=== PATIENT | female | born 1985 | race Caucasian/White ===

== ENCOUNTER 2020-07-11 15:51 | Inpatient (IN) | payer OTHER ==
[2020-07-11 16:30] LABS: APPEARANCE,URINE CLEAR; BILIRUBIN,URINE NEGATIVE (NEGATIVE); COLOR,URINE YELLOW; GLUCOSE, URINE NEGATIVE (NEGATIVE); KETONES,URINE NEGATIVE (NEGATIVE); LEUKOCYTE ESTERASE,URINE NEGATIVE (NEGATIVE); NITRITE,URINE NEGATIVE (NEGATIVE); PROTEIN,URINE NEGATIVE (NEGATIVE); UROBILINOGEN,URINE NEGATIVE mg/dL (<2.0)
[2020-07-11 16:50] LABS: URINE AMPHETAMINES SCREEN NEGATIVE; URINE BARBITURATES SCREEN NEGATIVE; URINE BENZODIAZEPINES SCREEN NEGATIVE; URINE COCAINE SCREEN NEGATIVE; URINE MARIJUANA (THC) SCREEN NEGATIVE; URINE METHADONE SCREEN NEGATIVE; URINE PHENCYCLIDINE SCREEN NEGATIVE
[2020-07-11] MEDS ORDERED: MISOPROSTOL 0.2 MG TABLET ONE (17:08)
[2020-07-11] MEDS ORDERED: LIDOCAINE 1% INJ-PF (10 MG/ML) 30 ML SDV ONE (17:08)
[2020-07-11] MEDS ORDERED: OXYTOCIN 10 UNIT/ML VIAL ONE (17:08)
[2020-07-11] MEDS ORDERED: OXYTOCIN/0.9 % SODIUM CHLORIDE 30 UNIT/500 ML RTUINJ ONE (17:09)
--- NOTE | 2020-07-11 17:22 | Admission Physical ---
Datetime Report Generated by CPN: 07/11/2020 17:22 CURRENT ADMISSION Chief Complaint: Uterine Contractions; Suspected Ruptured Membranes Indication for Induction: Not Applicable Admit Impression : Term, Intrauterine ; Active Labor; Ruptured Membranes Admit Plan: Admit to Unit; Initiate Labor Protocol ALLERGIES Medication Allergies: Yes Medication Allergies: amoxicillin (07/11/2020); penicillin G (07/11/2020) Latex: No Latex Allergies OBSTETRICAL HISTORY EDC: 07/14/2020 00:00 : 2 Para: 1 Term: 1 : 0 SAB: 0 IAB: 0 Ectopic: 0 Livin Cesareans: 0 VBACs: 0 Multiple Births: 0 Gestational Diabetes: No Rh Sensitization: No Incompetent Cervix: No CHASE: No Infertility: No ART Treatment: No Uterine Anomaly: No IUGR: No Hx Previous C/S: No Macrosomia: No Hx Loss/Stillborn: No PIH: No Hx : No Placenta Previa/Abruption: No Depression/PP Depression: No PTL/PROM: No Post Hemorrhage: No Current Procedures: Ultrasound Obstetrical History Comments: G1 2014 Epidural Girl G2- Current SEE RECORDS Alcohol: No Marijuana : No Cocaine: No Other Illicit Drugs: No Cigarettes: Former Smoker. [id number] MEDICAL HISTORY Diabetes: No Blood Transfusion: No Pulmonary Disease (Asthma, TB): No Breast Disease: No Hypertension: No Maitre D Surgery: No Heart Disease: No Hosp/Surgery: Yes Autoimmune Disorder: No Anesthetic Complications: No Kidney Disease: No Abnormal Pap Smear: No Neuro/Epilepsy: No Psychiatric Disorders: No Other Medical Diseases: No Hepatitis/Liver Disease: No Significant Family History: No Varicosities/Phlebitis: No Trauma/Violence : No Thyroid Dysfunction: Yes Medical History Comments: Hypothyroidism during , Hospitalized during child INFECTIOUS HISTORY Gonorrhea: No Genital Herpes: No Chlamydia: No Tuberculosis: No Syphilis: No Hepatitis: No HIV/AIDS Exposure: No Rash or Viral Illness: No HPV: No PHYSICAL EXAM General: Normal Heart: Normal Lungs: Normal Extremities: Normal DTRs: Normal Pelvic Type: Adequate Physical Exam Comments: pelvis proven to 7lbs 7 oz Vital Signs: Reviewed; Within Normal Limits VAGINAL EXAM Dilatation: 5 Effacement: 60 Station: -1 Contraction Comments: 2-4 MEMBRANES Membranes: Ruptured Amniotic Fluid Color: Meconium, Light FETUS A EGA: 39.4 Monitoring: External US FHR Category: Category I FHR Comments: after ruptured of forebag Cat II strip (late decel x1) but back to Cat I at this time Presentation: Vertex Admit Comment: 35yo @ 39w4d who was seen in the office today and was having contractions at that time and was found to be 3cm dilated. Pt. reports she had SROM @ 1430 with meconium stained fluid and contractions are getting stronger. Pt is O pos, RI, GBS negative. complicated by hypothyroidism and stopped smoking with positive test. Pt with forebag that was ruptured on admission and light meconium noted; plan is expectant management at this time. Dr. Garsia is the OB regional account manager today and aware of admission. PLANS FOR LABOR AND DELIVERY Labor and Delivery: None Pain Management: Natural Feeding Preference: Breast Benefit of Breast Feed Discussed: Yes Circumcision: Yes INFORMED CONSENT Assignment: Ger Garsia MD Signature: with User ID: Hugo : with User ID: [email or web address]
[2020-07-11 17:36] LABS: ABSOLUTE BASOPHILS # (AUTO) 0.1 10^3/uL (0.0-0.2); ABSOLUTE EOSINOPHILS # (AUTO) 0.3 10^3/uL (0.0-0.6); ABSOLUTE LYMPHOCYTES (AUTO) 1.3 10^3/uL (0.5-4.7); ABSOLUTE NEUT (AUTO) 6.8 10^3/uL (1.7-8.2); BASOPHILS % (AUTO) 0.8 % (0-2); EOSINOPHILS % (AUTO) 2.8 % (0-6); HEMATOCRIT 32.8 % (36.0-47.0); HEMOGLOBIN 11.4 g/dL (12.0-15.5); LYMPHOCYTES % (AUTO) 13.7 % (13-45); MEAN CORPUSCULAR HEMOGLOBIN 33.3 pg (27.0-33.4); MEAN CORPUSCULAR HGB CONC 34.9 g/dL (32.0-36.0); MEAN CORPUSCULAR VOLUME 95 fl (80-97); MONOCYTES % (AUTO) 10.5 % (3-13); PLATELET COUNT 293 10^3/uL (150-450); RED BLOOD COUNT 3.44 10^6/uL (3.72-5.28); RED CELL DISTRIBUTION WIDTH 13.4 % (11.5-14.0); SEGMENTED NEUTROPHILS % (AUTO) 72.2 % (42-78); TOTAL CELLS COUNTED % (AUTO) 100 %; WHITE BLOOD COUNT 9.5 10^3/uL (4.0-10.5)
[2020-07-11] MEDS ORDERED: IBUPROFEN 800 MG TABLET ONE (20:42)
[2020-07-11] MEDS ORDERED: MEASLES,MUMPS&RUBELLA VACC/PF 0.5 ML VIAL SUBCUT PRN (20:42)
[2020-07-11] MEDS ORDERED: ZOLPIDEM TARTRATE 5 MG TABLET PO PRN (20:42)
[2020-07-11] MEDS ORDERED: BENZOCAINE/MENTHOL AEROSOL SPRAY 56 ML TOP PRN (20:42)
[2020-07-11] MEDS ORDERED: OXYTOCIN/0.9 % SODIUM CHLORIDE 30 UNIT/500 ML RTUINJ IV PRN (20:42)
[2020-07-11] MEDS ORDERED: PROMETHAZINE HCL 25 MG SUPP.RECT PR PRN (20:42)
[2020-07-11] MEDS ORDERED: PSEUDOEPHEDRINE HCL 30 MG TABLET PO PRN (20:42)
[2020-07-11] MEDS ORDERED: DIBUCAINE 1% OINTMENT 28 GM TP PRN (20:42)
[2020-07-11] MEDS ORDERED: NA PHOS,M-B/NA PHOS,DI-BA (ADULT) 133 ML ENEMA PR PRN (20:42)
[2020-07-11] MEDS ORDERED: DIPHENHYDRAMINE HCL 25 MG CAPSULE PO PRN (20:42)
[2020-07-11] MEDS ORDERED: ACETAMINOPHEN 650 MG SUPP.RECT PR PRN (20:42)
[2020-07-11] MEDS ORDERED: GLYCERIN/WITCH HAZEL LEAF 1 EACH MED..WIPE TP PRN (20:42)
[2020-07-11] MEDS ORDERED: MAGNESIUM HYDROXIDE SUSP 30 ML UDCUP PO PRN (20:42)
[2020-07-11] MEDS ORDERED: ACETAMINOPHEN WITH CODEINE #3 TABLET PO PRN (20:42)
[2020-07-11] MEDS ORDERED: PROMETHAZINE HCL INJ 25 MG/1 ML VIAL IV PRN (20:42)
[2020-07-11] MEDS ORDERED: PROMETHAZINE HCL 25 MG TABLET PO PRN (20:42)
[2020-07-11] MEDS ORDERED: DIPH/PERTUSS(ACELL)/TETANUS VAC/PF 0.5 ML SYR (>=10YO) IM PRN (20:42)
--- NOTE | 2020-07-11 21:44 | Warning Signs in Babies ---
VOD Warning Signs Datetime Report Generated by N: 07/11/2020 21:44 VOD#[id number] -Warning Signs in Babies: Viewed with Parent(s)/Family (07/11/2020 16:25:Belia Voss RN)
--- NOTE | 2020-07-11 22:10 | Delivery Summary ---
Del Sum A-C Datetime Report Generated by CPN: 07/11/2020 22:09 DELIVERY PERSONNEL DELIVERY PERSONNEL: [id number] Delivery Doctor:: Ger Garsia, MD Labor and Delivery Nurse:: Belia Voss rn mds Nurse:: Amira Bellavance, RNC MATERNAL INFORMATION Delivery Anesthesia: None Medications After Delivery: Pitocin Bolus-Please Comment Delivery QBL: 50 Maternal Complications: None LABOR SUMMARY EDC: 07/14/2020 00:00 No. Babies in Womb: 1 Attempted: No Labor Anesthesia: None LABOR INFORMATION Reason for Induction: Not Applicable Onset of Labor: 07/11/2020 16:50 Complete Dilatation: 07/11/2020 20:22 Oxytocin: N/A Group B Beta Strep: Negative Antibiotics # of Doses: 0 Name of Antibiotic Given: n/a Steroids Given: None Reason Steroids Not Administered: Not Applicable MEMBRANES Membranes Rupture Method: Spontaneous Rupture of Membranes: 07/11/2020 14:30 Length of Rupture (hr): 5.98 Amniotic Fluid Color: Light Meconium Amniotic Fluid Amount: Small Amniotic Fluid Odor: Normal STAGES OF LABOR Stage 1 hr: 3 Stage 1 min: 32 Stage 2 hr: 0 Stage 2 min: 7 Stage 3 hr: 0 Stage 3 min: 8 Total Time in Labor hr: 3 Total Time in Labor min: 47 VAGINAL DELIVERY Episiotomy: None Laceration #1: None Sponge Count Correct: N/A Sharps Count Correct: N/A CSECTION DELIVERY Primary Indication: N/A Secondary Indication: N/A CSection Incidence: N/A Labor: N/A Elective: N/A CSection Incision: N/A BABY A INFORMATION Infant Delivery Date/Time: 07/11/2020 20:29 Method of Delivery: Vaginal Nurse Controlled Delivery: Yes Born in Route : No : N/A Forceps: N/A Vacuum Extraction: N/A Shoulder Dystocia : No PRESENTATION/POSITION BABY A Presentation: Cephalic Cephalic Presentation: Vertex Vertex Position: Right Occipital Anterior Breech Presentation: N/A PLACENTA INFORMATION BABY A Placenta Delivery Time : 07/11/2020 20:37 Placenta Method of Delivery: Spontaneous Placenta Status: Delivered SCORES BABY A Heart Rate 1 min: >100 bpm Resp Effort 1 min: Good Cry Reflex Irritability 1 min: Cough or Sneeze or Pulls Away Muscle Tone 1 min: Active Motion Color 1 min: Body [place], Extremities Blue Resuscitation Effort 1 min: Tactile Stimulation SCORE 1 MIN: 9 Heart Rate 5 min: >100 bpm Resp Effort 5 min: Good Cry Reflex Irritability 5 min: Cough or Sneeze or Pulls Away Muscle Tone 5 min: Active Motion Color 5 min: Completely [place] SCORE 5 MIN: 10 INFORMATION BABY A Gestational Age at Delivery: 39.4 Gestational Status: Full Term- 39- 40.6 Weeks Outcome : Liveborn Condition : Stable Sex: Male IDENTIFICATION BABY A Verification Date/Time: 07/11/2020 20:52 ID Band Number: [id number] Mother's Name Verified: Yes RN Verifying Infant: Norma Voss, RN Additional Verifying Personnel: Frederick Augustin RN WEIGHT/LENGTH BABY A Infant Birthweight (gm): 3370 Weight (lb): 7 Weight (oz): 7 Infant Length (in): 20.75 Infant Length (cm): 52.71 CORD INFORMATION BABY A No. Cord Vessels: 3 Nuchal Cord : N/A Cord Blood Taken: Yes-For Eval (Mom's Blood Type - or O+) Suction: None ASSESSMENT BABY A Complications: None Physical Findings at Delivery: Within Normal Limits Skin to Skin: Yes Skin to Skin Time (min): 60 Transferred To: Remains with Mother BABY B INFORMATION : N/A SIGNATURES Signature: with User ID: [email or web address]
--- NOTE | 2020-07-11 22:10 | Birth Certificate Data ---
Cert Data Datetime Report Generated by CPN: 07/11/2020 22:09 CERTIFICATE DATA Delivery Provider: Ger Garsia MD (07/11/2020 16:25:Isabel Augustin RN) 47a. Care: Yes (07/11/2020 16:25:Amy Steel RN) 47b. Date of First Visit: 01/04/2020 00:00 (07/11/2020 16:25:Amy Steel RN) 47c. Date of Last Visit: 07/11/2020 00:00 (07/11/2020 16:25:Amy Steel RN) 47d. Number of Visits: 10 (07/11/2020 16:25:Amy Steel RN) 48a. Number of Prev Live Births: 1 (07/11/2020 16:25:Amy Steel RN) 48b. Now Livin (07/11/2020 16:25:Amy Steel RN) 48c. Live Births Now : 0 (07/11/2020 16:25:QS system process) 48d. Date of Last Live : 11/03/2014 00:00 (07/11/2020 16:25:Amy Steel RN) 48e. Losses: 0 (07/11/2020 16:25:Amy Steel RN) RISK FACTORS IN THIS 49a. Diabetes: No (07/11/2020 16:25:Amy Steel RN) 49b. Hypertension: No (07/11/2020 16:25:Amy Steel RN) 49c. Previous Births: 0 (07/11/2020 16:25:Amy Steel RN) 49d. Stillborns: No (07/11/2020 16:25:Amy Steel RN) 49d. IUGR: No (07/11/2020 16:25:Amy Steel RN) 49e. Infertility Treatment: No (07/11/2020 16:25:Amy Steel RN) 49f. Previous Cesareans: 0 (07/11/2020 16:25:Amy Steel RN) Mother's Height 50b. Height Inches: 68 (07/11/2020 19:05:QS system process) Mother's Weight 51a. Pre- Weight (lbs): 162 (07/11/2020 16:25:Amy Steel RN) 51b. Weight at Delivery (lbs): 185 (07/11/2020 19:05:MD [employer] system process) 52. Dt Last Normal Menses Began: 09/23/2019 00:00 (07/11/2020 16:25:Amy Steel RN) Infections Present/Treated 53a. Gonorrhea: No (07/11/2020 16:25:Amy Steel RN) Results this Hospital Visit : Negative (07/11/2020 16:25:Amy Steel RN) 53b. Syphilis: No (07/11/2020 16:25:Amy Steel RN) 53c. Chlamydia: No (07/11/2020 16:25:Amy Steel RN) Results this Hospital Visit: Positive (07/11/2020 16:25:Amy Steel RN) 53d. Hepatitis B: No (07/11/2020 16:25:Amy Steel RN) Results this Hospital Visit: Negative (07/11/2020 16:25:Amy Steel RN) 53h. Mother Tested for HBsAG: Yes (07/11/2020 16:25:Amy Steel RN) 53i. Date Tested: 01/04/2020 00:00 (07/11/2020 16:25:Amy Steel RN) 53j. Test Result: Negative (07/11/2020 16:25:Amy Steel RN) Obstetric Procedures 54a, b, c. Obstetric Procedures: Ultrasound (07/11/2020 16:25:Amy Steel RN) Cigarette Smoking Cigarette Smoking: Former Smoker. [id number] (07/11/2020 16:25:Amy Steel RN) 55a. 3 Months Before Preg - Ci (07/11/2020 16:25:Amy Steel RN) 55a. Packs: 0 (07/11/2020 16:25:Amy Steel RN) 55b. 1st Trimester of Preg- Ci (07/11/2020 16:25:Amy Steel RN) 55b. Packs: 0 (07/11/2020 16:25:Amy Steel RN) 55c. 2nd Trimester of Preg- Ci (07/11/2020 16:25:Amy Steel RN) 55c. Packs: 0 (07/11/2020 16:25:Amy Steel RN) 55d. 3rd Trimester of Preg- Ci (07/11/2020 16:25:Amy Steel RN) 55d. Packs: 0 (07/11/2020 16:25:Amy Steel RN) Onset of Labor 56a. PROM >12 Hrs: 5.98 (07/11/2020 17:11:QS system process) 56b. Precipitous Labor <3 Hrs: 3 (07/11/2020 16:25:QS system process) 56c. Prolonged Labor > 20 Hrs: 3 (07/11/2020 16:25:QS system process) 57a. Induction of Labor: N/A (07/11/2020 16:25:Isabel Augustin RN) 57c. Non-Vertex Presentation A: Vertex (07/11/2020 16:25:Isabel Augustin RN) 57d. Steroids - Lung Mat: None (07/11/2020 16:25:Isabel Augustin RN) 57d. Steroids - Lung Mat: Not Applicable (07/11/2020 16:25:Isabel Augustin RN) 57f. Mat [place] or Temp >100.4: 98.5 (07/11/2020 16:25:Isabel Augustin RN) 57g. Moderate/Heavy Meconium: Light Meconium (07/11/2020 17:11:Amy Steel RN) 57h. Intolerance of Labor: N/A (07/11/2020 16:25:Isabel Augustin RN) : N/A (07/11/2020 16:25:Belia Voss RN) 57i. Epidural/Spinal Anesthesia: None (07/11/2020 16:25:Isabel Augustin RN) Method of Delivery 58a. Forceps - Unsuccessful A: N/A (07/11/2020 16:25:Isabel Augustin RN) 58b. Vacuum - Unsuccessful A: N/A (07/11/2020 16::Isabel Augustin RN) 58c. Presentation at 58c. Presentation at - A : Vertex (07/11/2020 16:25:Isabel Augustin RN) 58c. Presentation at - A : N/A (07/11/2020 16:25:Isabel Augustin RN) 58c. Presentation at - A : Cephalic (07/11/2020 18:38:Amy Steel RN) Final Route and Method of Del 58d. Baby A Route/Delivery: Vaginal (07/11/2020 16:25:Isabel Augustin RN) 58e. Trial of Labor Attempted: No (07/11/2020 16:25:Isabel Augustin RN) 58e. Trial of Labor Attempted A: N/A (07/11/2020 16:25:Isabel Augustin RN) 58e. Trial of Labor Attempted B: N/A (07/11/2020 16:25:Isabel Augustin RN) Maternal Morbidity 59b. 3rd or 4th Degree Lacs: None (07/11/2020 16:25:Belia Voss RN) 59b. 3rd or 4th Degree Lacs: N/A (07/11/2020 16:25:Belia Voss RN) Birthweight Baby A: 3370 (07/11/2020 16:25:Belia Voss RN) 60a. Pounds : 7 (07/11/2020 16:25:QS system process) 60b. Ounces: 7 (07/11/2020 16:25:QS system process) 61. GA at Delivery Baby A: 39.4 (07/11/2020 16:25:Isabel Augustin RN) : Full Term- 39- 40.6 Weeks (07/11/2020 16:25:QS system process) 62a. 5 Minute Baby A: 10 (07/11/2020 16:25:QS system process)
--- NOTE | 2020-07-11 22:23 | Birth Certificate Data ---
Cert Data Datetime Report Generated by CPN: 07/11/2020 22:23 CERTIFICATE DATA Delivery Provider: Ger Garsia MD (07/11/2020 16:25:Isabel Augustin RN) 47a. Care: Yes (07/11/2020 16:25:Amy Steel RN) 47b. Date of First Visit: 01/04/2020 00:00 (07/11/2020 16:25:Amy Steel RN) 47c. Date of Last Visit: 07/11/2020 00:00 (07/11/2020 16:25:Amy Steel RN) 47d. Number of Visits: 10 (07/11/2020 16:25:Amy Steel RN) 48a. Number of Prev Live Births: 1 (07/11/2020 16:25:Amy Steel RN) 48b. Now Livin (07/11/2020 16:25:Amy Steel RN) 48c. Live Births Now : 0 (07/11/2020 16:25:QS system process) 48d. Date of Last Live : 11/03/2014 00:00 (07/11/2020 16:25:Amy Steel RN) 48e. Losses: 0 (07/11/2020 16:25:Amy Steel RN) RISK FACTORS IN THIS 49a. Diabetes: No (07/11/2020 16:25:Amy Steel RN) 49b. Hypertension: No (07/11/2020 16:25:Amy Steel RN) 49c. Previous Births: 0 (07/11/2020 16:25:Amy Steel RN) 49d. Stillborns: No (07/11/2020 16:25:Amy Steel RN) 49d. IUGR: No (07/11/2020 16:25:Amy tSeel RN) 49e. Infertility Treatment: No (07/11/2020 16:25:Amy Steel RN) 49f. Previous Cesareans: 0 (07/11/2020 16:25:Amy Steel RN) Mother's Height 50b. Height Inches: 68 (07/11/2020 19:05:QS system process) Mother's Weight 51a. Pre- Weight (lbs): 162 (07/11/2020 16:25:Amy Steel RN) 51b. Weight at Delivery (lbs): 185 (07/11/2020 19:05:[employer] system process) 52. Dt Last Normal Menses Began: 09/23/2019 00:00 (07/11/2020 16:25:Amy Steel RN) Infections Present/Treated 53a. Gonorrhea: No (07/11/2020 16:25:Amy Steel RN) Results this Hospital Visit : Negative (07/11/2020 16:25:Amy Steel RN) 53b. Syphilis: No (07/11/2020 16:25:Aym Steel RN) 53c. Chlamydia: No (07/11/2020 16:25:Amy Steel RN) Results this Hospital Visit: Positive (07/11/2020 16:25:Amy Steel RN) 53d. Hepatitis B: No (07/11/2020 16:25:Amy Steel RN) Results this Hospital Visit: Negative (07/11/2020 16:25:Amy Steel RN) 53h. Mother Tested for HBsAG: Yes (07/11/2020 16:25:Amy Steel RN) 53i. Date Tested: 01/04/2020 00:00 (07/11/2020 16:25:Amy Steel RN) 53j. Test Result: Negative (07/11/2020 16:25:Amy Steel RN) Obstetric Procedures 54a, b, c. Obstetric Procedures: Ultrasound (07/11/2020 16:25:Amy Steel RN) Cigarette Smoking Cigarette Smoking: Former Smoker. [id number] (07/11/2020 16:25:Amy Steel RN) 55a. 3 Months Before Preg - Ci (07/11/2020 16:25:Amy Steel RN) 55a. Packs: 0 (07/11/2020 16:25:Amy Steel RN) 55b. 1st Trimester of Preg- Ci (07/11/2020 16:25:Amy Steel RN) 55b. Packs: 0 (07/11/2020 16:25:Amy Steel RN) 55c. 2nd Trimester of Preg- Ci (07/11/2020 16:25:Amy Steel RN) 55c. Packs: 0 (07/11/2020 16:25:Amy Steel RN) 55d. 3rd Trimester of Preg- Ci (07/11/2020 16:25:Amy Steel RN) 55d. Packs: 0 (07/11/2020 16:25:Amy Steel RN) Onset of Labor 56a. PROM >12 Hrs: 5.98 (07/11/2020 17:11:QS system process) 56b. Precipitous Labor <3 Hrs: 3 (07/11/2020 16:25:QS system process) 56c. Prolonged Labor > 20 Hrs: 3 (07/11/2020 16:25:QS system process) 57a. Induction of Labor: N/A (07/11/2020 16:25:Isabel Augustin RN) 57c. Non-Vertex Presentation A: Vertex (07/11/2020 16:25:Isabel Augustin RN) 57d. Steroids - Lung Mat: None (07/11/2020 16:25:Isabel Augustin RN) 57d. Steroids - Lung Mat: Not Applicable (07/11/2020 16:25:Isabel Augustin RN) 57f. Mat [place] or Temp >100.4: 98.5 (07/11/2020 16:25:Isabel Augustin RN) 57g. Moderate/Heavy Meconium: Light Meconium (07/11/2020 17:11:Amy Steel RN) 57h. Intolerance of Labor: N/A (07/11/2020 16:25:Isabel Augustin RN) : N/A (07/11/2020 16:25:Belia Voss RN) 57i. Epidural/Spinal Anesthesia: None (07/11/2020 16:25:Isabel Augustin RN) Method of Delivery 58a. Forceps - Unsuccessful A: N/A (07/11/2020 16:25:Isabel Augustin RN) 58b. Vacuum - Unsuccessful A: N/A (07/11/2020 16::Isabel Augustin RN) 58c. Presentation at 58c. Presentation at - A : Vertex (07/11/2020 16:25:Isabel Augustin RN) 58c. Presentation at - A : N/A (07/11/2020 16:25:Isabel Augustin RN) 58c. Presentation at - A : Cephalic (07/11/2020 18:38:Amy Steel RN) Final Route and Method of Del 58d. Baby A Route/Delivery: Vaginal (07/11/2020 16:25:Isabel Augutsin RN) 58e. Trial of Labor Attempted: No (07/11/2020 16:25:Isabel Augustin RN) 58e. Trial of Labor Attempted A: N/A (07/11/2020 16:25:Isabel Augustin RN) 58e. Trial of Labor Attempted B: N/A (07/11/2020 16:25:Isabel Augustin RN) Maternal Morbidity 59b. 3rd or 4th Degree Lacs: None (07/11/2020 16:25:Belia Voss RN) 59b. 3rd or 4th Degree Lacs: N/A (07/11/2020 16:25:Belia Voss RN) Birthweight Baby A: 3770 (07/11/2020 16:25:Belia Voss RN) 60a. Pounds : 8 (07/11/2020 16:25:QS system process) 60b. Ounces: 5 (07/11/2020 16:25:QS system process) 61. GA at Delivery Baby A: 39.4 (07/11/2020 16:25:Isabel Augustin RN) : Full Term- 39- 40.6 Weeks (07/11/2020 16:25:QS system process) 62a. 5 Minute Baby A: 10 (07/11/2020 16:25:QS system process)
--- NOTE | 2020-07-11 22:23 | Delivery Summary ---
Del Sum A-C Datetime Report Generated by CPN: 07/11/2020 22:23 DELIVERY PERSONNEL DELIVERY PERSONNEL: [id number] Delivery Doctor:: Ger Garsia, MD Labor and Delivery Nurse:: Belia Voss atmospheric chemist Nurse:: Amira Bellavance, RNC MATERNAL INFORMATION Delivery Anesthesia: None Medications After Delivery: Pitocin Bolus-Please Comment Delivery QBL: 50 Maternal Complications: None LABOR SUMMARY EDC: 07/14/2020 00:00 No. Babies in Womb: 1 Attempted: No Labor Anesthesia: None LABOR INFORMATION Reason for Induction: Not Applicable Onset of Labor: 07/11/2020 16:50 Complete Dilatation: 07/11/2020 20:22 Oxytocin: N/A Group B Beta Strep: Negative Antibiotics # of Doses: 0 Name of Antibiotic Given: n/a Steroids Given: None Reason Steroids Not Administered: Not Applicable MEMBRANES Membranes Rupture Method: Spontaneous Rupture of Membranes: 07/11/2020 14:30 Length of Rupture (hr): 5.98 Amniotic Fluid Color: Light Meconium Amniotic Fluid Amount: Small Amniotic Fluid Odor: Normal STAGES OF LABOR Stage 1 hr: 3 Stage 1 min: 32 Stage 2 hr: 0 Stage 2 min: 7 Stage 3 hr: 0 Stage 3 min: 8 Total Time in Labor hr: 3 Total Time in Labor min: 47 VAGINAL DELIVERY Episiotomy: None Laceration #1: None Sponge Count Correct: N/A Sharps Count Correct: N/A CSECTION DELIVERY Primary Indication: N/A Secondary Indication: N/A CSection Incidence: N/A Labor: N/A Elective: N/A CSection Incision: N/A BABY A INFORMATION Infant Delivery Date/Time: 07/11/2020 20:29 Method of Delivery: Vaginal Nurse Controlled Delivery: Yes Born in Route : No : N/A Forceps: N/A Vacuum Extraction: N/A Shoulder Dystocia : No PRESENTATION/POSITION BABY A Presentation: Cephalic Cephalic Presentation: Vertex Vertex Position: Right Occipital Anterior Breech Presentation: N/A PLACENTA INFORMATION BABY A Placenta Delivery Time : 07/11/2020 20:37 Placenta Method of Delivery: Spontaneous Placenta Status: Delivered SCORES BABY A Heart Rate 1 min: >100 bpm Resp Effort 1 min: Good Cry Reflex Irritability 1 min: Cough or Sneeze or Pulls Away Muscle Tone 1 min: Active Motion Color 1 min: Body [place], Extremities Blue Resuscitation Effort 1 min: Tactile Stimulation SCORE 1 MIN: 9 Heart Rate 5 min: >100 bpm Resp Effort 5 min: Good Cry Reflex Irritability 5 min: Cough or Sneeze or Pulls Away Muscle Tone 5 min: Active Motion Color 5 min: Completely [place] SCORE 5 MIN: 10 INFORMATION BABY A Gestational Age at Delivery: 39.4 Gestational Status: Full Term- 39- 40.6 Weeks Outcome : Liveborn Condition : Stable Sex: Male IDENTIFICATION BABY A Verification Date/Time: 07/11/2020 20:52 ID Band Number: [id number] Mother's Name Verified: Yes RN Verifying Infant: Norma Voss, RN Additional Verifying Personnel: Frederick Augustin RN WEIGHT/LENGTH BABY A Infant Birthweight (gm): 3770 Weight (lb): 8 Weight (oz): 5 Infant Length (in): 20.75 Infant Length (cm): 52.71 CORD INFORMATION BABY A No. Cord Vessels: 3 Nuchal Cord : N/A Cord Blood Taken: Yes-For Eval (Mom's Blood Type - or O+) Suction: None ASSESSMENT BABY A Complications: None Physical Findings at Delivery: Within Normal Limits Skin to Skin: Yes Skin to Skin Time (min): 60 Transferred To: Remains with Mother BABY B INFORMATION : N/A SIGNATURES Signature: with User ID: [email or web address]
[2020-07-11] MEDS: IBUPROFEN 800 MG TABLET PO SCH (22:40)
[2020-07-11] MEDS: FAMOTIDINE 20 MG TABLET PO SCH (22:40)
[2020-07-12] MEDS: IBUPROFEN 800 MG TABLET PO SCH ×3 (06:13→22:51)
[2020-07-12 06:59] LABS: HEMATOCRIT 31.6 % (36.0-47.0); HEMOGLOBIN 11.2 g/dL (12.0-15.5); MEAN CORPUSCULAR HEMOGLOBIN 33.7 pg (27.0-33.4); MEAN CORPUSCULAR HGB CONC 35.4 g/dL (32.0-36.0); MEAN CORPUSCULAR VOLUME 95 fl (80-97); PLATELET COUNT 262 10^3/uL (150-450); RED BLOOD COUNT 3.32 10^6/uL (3.72-5.28); RED CELL DISTRIBUTION WIDTH 13.3 % (11.5-14.0); WHITE BLOOD COUNT 13.5 10^3/uL (4.0-10.5)
[2020-07-12] MEDS: SENNOSIDES/DOCUSATE 8.6-50 MG 1 EACH TABLET PO SCH (10:59)
[2020-07-12] MEDS: FERROUS SULFATE 325 MG TABLET PO SCH ×2 (10:59→18:15)
[2020-07-12] MEDS: FAMOTIDINE 20 MG TABLET PO SCH ×3 (10:59→22:52)
[2020-07-12] MEDS: PRENATAL VITAMIN W DHA CAPSULE PO SCH (10:59)
[2020-07-12] MEDS: DOCUSATE SODIUM 100 MG CAPSULE PO SCH ×2 (10:59→18:15)
--- NOTE | 2020-07-12 12:34 | PDOC PROGRESS REPORT ---
Subjective-OB Progress Note for:: 07/12/20 Subjective: Pt doing well, no concerns. She reports light bleeding, reg diet and voiding w/o difficulty. Physical Exam (OB) Vital Signs: Temp Pulse Resp BP Pulse Ox 97.7 F 77 16 101/67 100 07/12/20 08:09 07/12/20 08:09 07/12/20 08:09 07/12/20 08:09 07/12/20 08:09 Intake & Output 07/11/20 07/12/20 07/13/20 06:59 06:59 06:59 Intake Total 400 Balance 400 Weight 83.9 kg - Maternal Morbidity 59. Maternal Morbidity (serious complications experinced by the mother associated with labor and delivery: None of the above - Lochia Lochia Amount: Scant < 10 ml Lochia Color: Rubra/Red - Abdomen Description: Soft, Round Hernia Present: No Fundal Description: Firm, Midline Fundal Height: u/u - u/2 Objective-Diagnostic Laboratory: 07/12/20 06:09 07/11/20 07/11/20 07/11/20 16:00 17:19 17:19 WBC 9.5 RBC 3.44 L Hgb 11.4 L Hct 32.8 L MCV 95 MCH 33.3 MCHC 34.9 RDW 13.4 Plt Count 293 Seg Neutrophils % 72.2 Urine Color YELLOW Urine Appearance CLEAR Urine pH 6.0 Ur Specific Shorter 1.010 Urine Protein NEGATIVE Urine Glucose (UA) NEGATIVE Urine Ketones NEGATIVE Urine Blood MODERATE H Urine Nitrite NEGATIVE Ur Leukocyte Esterase NEGATIVE Blood Type O POSITIVE Antibody Screen NEGATIVE 07/12/20 06:09 WBC 13.5 H RBC 3.32 L Hgb 11.2 L Hct 31.6 L MCV 95 MCH 33.7 H MCHC 35.4 RDW 13.3 Plt Count 262 Seg Neutrophils % Urine Color Urine Appearance Urine pH Ur Specific Shorter Urine Protein Urine Glucose (UA) Urine Ketones Urine Blood Urine Nitrite Ur Leukocyte Esterase Blood Type Antibody Screen Assessment and Plan(PN) - Assessment and Plan (1) Vaginal delivery Is this a current diagnosis for this admission?: Yes (2) Meconium stained amniotic fluid, delivered, current hospitalization Is this a current diagnosis for this admission?: Yes (3) SROM (spontaneous rupture of membranes) Is this a current diagnosis for this admission?: Yes (4) Active labor at term Is this a current diagnosis for this admission?: Yes - Time Spent with Patient Time with patient: Less than 15 minutes Medications reviewed and adjusted accordingly: Yes - Disposition Anticipated Discharge Disposition: Home, Self Care Anticipated Discharge Timeframe: within 24 hours
[2020-07-13] MEDS: IBUPROFEN 800 MG TABLET PO SCH (05:22)
[2020-07-13 08:48] VITALS: BP 102/71
[2020-07-13] MEDS: PRENATAL VITAMIN W DHA CAPSULE PO SCH (10:19)
[2020-07-13] MEDS: FERROUS SULFATE 325 MG TABLET PO SCH (10:20)
[2020-07-13] MEDS: SENNOSIDES/DOCUSATE 8.6-50 MG 1 EACH TABLET PO SCH (10:20)
[2020-07-13] MEDS: DOCUSATE SODIUM 100 MG CAPSULE PO SCH (10:20)
[2020-07-13] MEDS: FAMOTIDINE 20 MG TABLET PO SCH (10:25)
--- NOTE | 2020-07-13 10:43 | PDOC DISCHARGE SUMMARY ---
Impression - Admit/DC Date/PCP Admission Date/Primary Care Provider: 07/11/20 16:43 ANNA CARMONA PA-C Discharge Date: 07/13/20 - Discharge Diagnosis (1) Vaginal delivery Is this a current diagnosis for this admission?: Yes (2) Meconium stained amniotic fluid, delivered, current hospitalization Is this a current diagnosis for this admission?: Yes (3) SROM (spontaneous rupture of membranes) Is this a current diagnosis for this admission?: Yes (4) Active labor at term Is this a current diagnosis for this admission?: Yes - Additional Information Resuscitation Status: Full Code Discharge Diet: Regular Discharge Activity: Balance Activity w/Rest, Pelvic Rest Referrals: ANNA CARMONA PA-C [Primary Care Provider] - Home Medications: Prenat 115/Iron Fum/Folic/Dss [ 19 Tablet] 1 tab PO DAILY 07/11/20 HPI Reason(s) for Admission: Onset of Labor Procedures: NST Intrapartum Procedure(s): Spontaneous Vaginal Delivery Complication(s): Laceration-Perineal Laceration-Degree: 1st Hospital Course 59. Maternal Morbidity (serious complications experinced by the mother associated with labor and delivery: None of the above Results Laboratory Results: WBC 13.5 10^3/uL (4.0-10.5) H 07/12/20 06:09 RBC 3.32 10^6/uL (3.72-5.28) L 07/12/20 06:09 Hgb 11.2 g/dL (12.0-15.5) L 07/12/20 06:09 Hct 31.6 % (36.0-47.0) L 07/12/20 06:09 MCV 95 fl (80-97) 07/12/20 06:09 MCH 33.7 pg (27.0-33.4) H 07/12/20 06:09 MCHC 35.4 g/dL (32.0-36.0) 07/12/20 06:09 RDW 13.3 % (11.5-14.0) 07/12/20 06:09 Plt Count 262 10^3/uL (150-450) 07/12/20 06:09 Lymph % (Auto) 13.7 % (13-45) 07/11/20 17:19 Alexander % (Auto) 10.5 % (3-13) 07/11/20 17:19 Eos % (Auto) 2.8 % (0-6) 07/11/20 17:19 Baso % (Auto) 0.8 % (0-2) 07/11/20 17:19 Absolute Neuts (auto) 6.8 10^3/uL (1.7-8.2) 07/11/20 17:19 Absolute Lymphs (auto) 1.3 10^3/uL (0.5-4.7) 07/11/20 17:19 Absolute Monos (auto) 1.0 10^3/uL (0.1-1.4) 07/11/20 17:19 Absolute Eos (auto) 0.3 10^3/uL (0.0-0.6) 07/11/20 17:19 Absolute Basos (auto) 0.1 10^3/uL (0.0-0.2) 07/11/20 17:19 Seg Neutrophils % 72.2 % (42-78) 07/11/20 17:19 Urine Color YELLOW 07/11/20 16:00 Urine Appearance CLEAR 07/11/20 16:00 Urine pH 6.0 (5.0-9.0) 07/11/20 16:00 Ur Specific [facility] 1.010 07/11/20 16:00 Urine Protein NEGATIVE mg/dL (NEGATIVE) 07/11/20 16:00 Urine Glucose (UA) NEGATIVE mg/dL (NEGATIVE) 07/11/20 16:00 Urine Ketones NEGATIVE mg/dL (NEGATIVE) 07/11/20 16:00 Urine Blood MODERATE (NEGATIVE) H 07/11/20 16:00 Urine Nitrite NEGATIVE (NEGATIVE) 07/11/20 16:00 Urine Bilirubin NEGATIVE (NEGATIVE) 07/11/20 16:00 Urine Urobilinogen NEGATIVE mg/dL (<2.0) 07/11/20 16:00 Ur Leukocyte Esterase NEGATIVE (NEGATIVE) 07/11/20 16:00 Urine Ascorbic Acid NEGATIVE (NEGATIVE) 07/11/20 16:00 Membranes Rupture POSITIVE (NEGATIVE) H 07/11/20 16:17 Urine Opiates Screen NEGATIVE 07/11/20 16:00 Urine Methadone Screen NEGATIVE 07/11/20 16:00 Ur Barbiturates Screen NEGATIVE 07/11/20 16:00 Ur Phencyclidine Scrn NEGATIVE 07/11/20 16:00 Ur Amphetamines Screen NEGATIVE 07/11/20 16:00 U Benzodiazepines Scrn NEGATIVE 07/11/20 16:00 Urine Cocaine Screen NEGATIVE 07/11/20 16:00 U Marijuana (THC) Screen NEGATIVE 07/11/20 16:00 Blood Type O POSITIVE 07/11/20 17:19 Antibody Screen NEGATIVE 07/11/20 17:19 Plan Plan of Treatment: f/u at [facility] [facility] Time Spent: Less than 30 Minutes
== END 2020-07-13 13:00 | disposition home or self-care (01) | DRG 807 ==
LOC: LC 15:51 → LR 16:43 → 2S 22:40
PROVIDERS: ADMIT Obstetrics & Gynecology Gynecology; ATTEND Obstetrics & Gynecology Gynecology
PROC: 10E0XZZ Delivery of Products of Conception, External Approach (ICD-10-PCS; principal; 2020-07-11)
PROC: 0HQ9XZZ Repair Perineum Skin, External Approach (ICD-10-PCS; 2020-07-11)
DX: O77.0 Labor and delivery complicated by meconium in amniotic fluid (principal); Z37.0 Single live birth; O99.284 Endocrine, nutritional and metabolic diseases complicating childbirth; E03.9 Hypothyroidism, unspecified; Z20.828 Contact with and (suspected) exposure to other viral communicable diseases; Z88.0 Allergy status to penicillin; Z87.891 Personal history of nicotine dependence; Z3A.39 39 weeks gestation of pregnancy
CPT/HCPCS: 36415; 80307; 81005; 84112; 85025; 85027; 86592; 86850; 86900; 86901; J2590; J3490